=== PATIENT | female | born 1965 | race Hispanic/Latino ===

== ENCOUNTER 2017-10-10 09:18 | Outpatient (CLI) | payer OTHER ==
--- NOTE | 2017-10-10 13:41 | MMO ---
BILATERAL SCREENING MAMMOGRAM: INDICATIONS: Annual exam. COMPARISON: None available. This will serve as the patient's baseline exam. FINDINGS: There are scattered fibroglandular elements. There are punctate benign appearing calcifications in the left breast. No suspicious mass, cluster of microcalcifications, or area of architectural distortion is evident. Interpretation of this examination was assisted with computer aided detection. IMPRESSION: BI-RADS category 2-Benign. Recommend routine annual mammographic screening. POS: [id number]
== END 2017-10-10 09:19 | disposition home or self-care (01) ==
LOC: SCSMAMMO 09:18
PROVIDERS: ATTEND Family Medicine
DX: Z12.31 Encounter for screening mammogram for malignant neoplasm of breast (principal)
CPT/HCPCS: 77067